=== PATIENT | female | born 1985 | race Caucasian/White ===

== ENCOUNTER 2016-03-29 18:29 | Emergency (ER) | payer OTHER ==
--- NOTE | 2016-03-29 20:22 | DIAGNOSTIC IMAGING REPORT ---
PROCEDURE: CT HEAD WITHOUT CONTRAST INDICATION: TRAUMA/INJURY TECHNIQUE: Noncontrast axial images with sagittal and coronal reformations. COMPARISON: None. FINDINGS: Brain and ventricles are normal. No evidence of an acute process or hemorrhage. Sinuses and mastoids are normal. IMPRESSION: 1. Negative head CT. 2. Findings discussed with BENNIE Solorio at [address] scans at this facility use dose modulation, iterative reconstruction, and/or weight-based dosing when appropriate to reduce radiation dose to as low as reasonably achievable.
--- NOTE | 2016-03-29 20:23 | ED ORDER SUMMARY ---
..... Patient: SANDRO HUDDLESTON OrderSheet [facility] VisitID: [id number] [address] [place] [address] 30y, F Registration Date/Time: 03/29/2016 ORDER SHEET Weight: 90.7 kg (stated) Allergies: None GENERAL ORDERS: CT Head wo Cont Urgent (18:52 03/29/2016 Jackie Mike) [facility] ([facility] RF[facility] MEDICATION ORDERS: IV FLUIDS: ORDER SHEET NOTES: [Electronically signed by Greg Hodgson R.N. (20:36 03/29/2016)] [Electronically signed by Rosa Pineda P.A.-C (20:40 03/29/2016)] [Electronically locked/signed by Greg Hodgson R.N. (20:36 03/29/2016)]
--- NOTE | 2016-03-29 20:23 | ED CLINICAL REPORT ---
Clinical Report - Physicians/Mid Levels [facility] [address] [place] [place] [address] 03/29/2016 18:31 Patient: SANDRO HUDDLESTON Time Seen: 18:49 Mar 29 2016. Arrived- By private vehicle. Historian- patient. HISTORY OF PRESENT ILLNESS Chief Complaint: INJURY TO HEAD. Location of injuries- head. The injury occurred 5 days. Occurred at home. The patient sustained a blow. Fell. The patient complains of mild pain. The patient sustained a blow to the head and was dazed. No neck pain or loss of consciousness. (+ETOH at the time fell forward, unsure of further details. Then slept after, and has had a headache, neck pain since, has had emesis. No prior head injury. Pain persistent worse with movement.). REVIEW OF SYSTEMS No nausea, chest pain, bladder dysfunction or laceration. All systems otherwise negative, except as recorded above. PAST HISTORY Tetanus immunization status is up-to-date. SOCIAL HISTORY Smoker- current status unknown. Alcohol use. ADDITIONAL NOTES The nursing notes have been reviewed. PHYSICAL EXAM Vital Signs: 03/29/2016 18:39 BP: 105/69. HR: 79. RR: 18. O2 saturation: 99%. Temp: 98 F. Appearance: Alert. No acute distress. No backboard or C-collar. Head: Head non-tender. Eyes: Pupils equal, round and reactive to light. No ocular injury. ENT: No dental injury. No hemotympanum. Neck: Vertebral tenderness: (at base of skull). Posterior neck: upper cervical spine, mild tenderness. No foreign body. No ecchymosis. CVS: Heart sounds normal. Pulses normal. Respiratory: Breath sounds normal. Chest nontender. No chest wall injury. Abdomen: No rebound tenderness or guarding. Extremities: Normal inspection. Pelvis stable. Neuro: [place] Coma Scale: 15- eyes open spontaneously (4); best verbal response- oriented x 3 (5); best motor response- obeys commands (6). Oriented X 3. Mood/affect normal. Speech normal. No motor deficit. Normal gait. No sensory deficit. LABS, X-RAYS, AND EKG CT Head: (IMPRESSION: 1. Negative head CT. 2. Findings discussed with Idalia Pineda, BENNIE at [address] scans at this facility use dose modulation, iterative reconstruction, and/or weight-based dosing when appropriate to reduce radiation dose to as low as reasonably achievable. Electronically Final signed by:Jerry Sánchez MD 03/29/2016 8:20:28 PM). PROGRESS AND PROCEDURES Patient/family counseled. Disposition: Discharged. Condition: good. CLINICAL IMPRESSION Minor closed head injury. Concussion. No loss of consciousness. INSTRUCTIONS Prescription Medications: Zofran (orally disintegrating tablets) 4 mg: take 1 orally every 6 hours for 3 days. No refill. Substitution is permissible. OTC Medications: Take OTC medications according to label instructions. Available over the counter. Acetaminophen (available over the counter): take according to label instructions. Motrin (available over the counter): take according to label instructions. Follow-up: Follow up with your doctor in three days. Understanding of the discharge instructions verbalized by patient. (Electronically signed by Rosa Pineda P.A.-C 03/29/2016 20:40)
--- NOTE | 2016-03-29 20:23 | ED ORDER SUMMARY ---
..... Patient: SANDRO HUDDLESTON OrderSheet [facility] VisitID: [id number] [address] [place] [address] 30y, F Registration Date/Time: 03/29/2016 ORDER SHEET Weight: 90.7 kg (stated) Allergies: None GENERAL ORDERS: CT Head wo Cont Urgent (18:52 03/29/2016 Jackie Mike[facility] ([facility] RFay[facility] MEDICATION ORDERS: IV FLUIDS: ORDER SHEET NOTES: [Electronically signed by Greg Hodgson R.N. (20:36 03/29/2016)] [Electronically signed by Rosa Pineda P.A.-C (20:40 03/29/2016)] [Electronically locked/signed by Greg Hodgson R.N. (20:36 03/29/2016)]
--- NOTE | 2016-03-29 20:23 | ED NURSING NOTES ---
Clinical Report - Nurses [facility] [address] [place] [address] 03/29/2016 18:31 Patient: JAZLYN HUDDLESTON TRIAGE Triage time 18:39 Mar 29 2016. Acuity: LEVEL 3. Chief Complaint: HEADACHE. --18:55 Nigel Godinez R.N. 18:39 03/29/16. BP: 105/69. HR: 79. RR: 18. O2 saturation: 99%. Temp: 98 F. Pain level now 06/15. --18:55 Nigel Godinez R.N. Weight: 90.7 kg stated. Height/Length: 65 inches Per Patient. BMI: 33.3. --18:54 Nigel Godinez R.N. Medications Vitamins/Minerals Oral. --18:45 Nigel Godinez R.N. Allergies None. --19:05 Nigel Godinez R.N. History Arrived by private vehicle. Historian: patient. This started 5 days ago. ( Patient fell and landed on head 5 days ago. Lump has gone down but has had a severe headache since then with neck pain. States did throw up a couple of days but thinks it may have been a stomach bug. Wants to make sure she doesn't have a bleed or anything wrong since pain won't go away. Patient is very light sensitive and has been taking bayers asa in the PM and excedrine during the day.). She has had nausea and vomiting. ( Not currently yesterday was throwing up though.). No weakness, numbness, fever or sinus pain. PAST MEDICAL HX: No history of diabetes mellitus or hypertension. No history of headaches or head injury. Last normal menstrual period- Mar 08. SOCIAL HX: Current every day heavy tobacco smoker- 1-2 packs per day. Regular alcohol use. No drug use. She has had contact with a sick friend. No infectious disease exposure. SELF HARM ASSESSMENT: A self harm assessment was performed. The patient answered "no" to the question "Have you recently felt down, depressed, or hopeless?" and "Do you have thoughts of harming or killing yourself?". FALL RISK ASSESSMENT: Fall risk assessment completed. No fall risk identified. NUTRITIONAL RISK ASSESSMENT: The nutritional risk assessment revealed no deficiencies. FUNCTIONAL ASSESSMENT: Functional assessment: no impairments noted. LEARNING NEEDS ASSESSMENT: The learning needs assessment revealed no barriers. ABUSE ASSESSMENT: Abuse assessment: (no) The patient was asked "Do you feel safe in your home?". SKIN INTEGRITY ASSESSMENT: Skin integrity risk assessment completed. No skin integrity risk identified. --18:55 Nigel Godinez R.N. PROBLEMS: Otitis Media. Otitis Externa. Impacted Cerumen. Ear Infection. Immunizations. --18:46 Nigel Godinez R.N. ADDITIONAL SURGERIES: no known surgeries. Interventions ID band on patient. --18:55 Nigel Godinez R.N. PHYSICAL ASSESSMENT Ambulatory to room. GENERAL / NEURO / PSYCH: Alert. Oriented X 4. Appears in pain. Speech within normal limits. HEENT: No facial asymmetry noted. Pupils equal, round and reactive to light. RESPIRATORY: Respirations not labored. Breath sounds within normal limits. CVS: Capillary refill less than 2 seconds. GI / : Abdomen soft and nontender. SKIN: Skin is warm and dry. --18:58 Nigel Godinez R.N. NURSING PROGRESS NOTES Pulse oximeter and NIBP monitor placed on patient. Head of bed elevated (45). Reassurance given. Call light placed in reach. Side rails up x 1. Bed placed in lowest position. Brakes of bed on. ( POC for is negative). --19:03 Nigel Godinez R.N. The initial plan of care for this patient has been created This plan of care was discussed with the patient. Reassurance given to the patient. Lights dimmed. The patient is calm and sleeping. GENERAL / NEURO / PSYCH: Alert. Oriented X 4. [place] Coma Scale: 15- eyes open spontaneously (4); best verbal response- oriented x 4 (5); best motor response- obeys commands (6). RESPIRATORY: No respiratory distress. No respiratory distress. Respirations not labored. SKIN: Skin is warm and dry. Skin color within normal limits. Two patient identifiers checked. Call light placed in reach. Side rails up x 2. Bed placed in lowest position. Brakes of bed on. Care transferred and report received (LAMONTE Manning (at 1900)). --19:43 Greg Hodgson R.N. 19:41 03/29/16. BP: 90/58 (regular adult cuff) taken on the left arm, via an automated monitor, while lying. HR: 72 (normal rate). RR: 14 (regular, unlabored and normal). O2 saturation: 97% on room air. Pain level now: 0/10. --19:43 Greg Hodgson R.N. DISPOSITION / DISCHARGE Departure time: 20:36. Condition at departure: stable. The goals identified in the patient's plan of care were met. No learning barriers present. Discharge instructions provided and reviewed with the patient. Reviewed medication(s) side effects, precautions, dosing and course information. Prescription(s) given to the patient (Jazlyn verbalizes safe, proper use of all prescribed meds for optimal pain management at home.). Activity restrictions (rest) reviewed. Patient verbalized understanding. Written instructions provided in Khmer. ( Masoudcherellenirmala verbalizes understanding of all d/c instructions including need to not re-injure head in the 2 weeks and f/u with her PCP. She has no questions and voices no concerns at this time.). The patient was discharged by the physician bilingual executive assistant. She was discharged home and accompanied by spouse. She left the Emergency Department ambulatory and via private vehicle. Spouse driving. [place] COMA SCORE: [place] Coma Scale: 15- eyes open spontaneously (4); best verbal response- oriented x 4 (5); best motor response- obeys commands (6). --20:36 Greg Hodgson R.N. 20:28 03/29/16. BP: 93/51 (regular adult cuff) taken on the left arm, via an automated monitor, while lying. HR: 74 (normal rate). RR: 16 (regular, unlabored and normal). O2 saturation: 97% on room air. Temp: 98.2 F (oral). Pain level now: 0/10. --20:36 Greg Hodgson R.N. Locked/Released at 03/29/2016 20:36 by Greg Hodgson R.N.
--- NOTE | 2016-03-29 20:40 | ED MAR SUMMARY ---
..... Medication Administration Record [facility] [address] [place], [place] [id number] Patient: SANDRO HUDDLESTON Layo Visit ID: [id number] 30y, F Weight: 90.7 kg Height/Length: 65 in BMI: 33.3 ALLERGIES: None
--- NOTE | 2016-03-29 20:40 | ED DISCHARGE INSTRUCTIONS ---
Patient: SANDRO HUDDLESTON General Instructions [facility] VisitID: [id number] [place] [address] 30y, F Registration Date/Time: 03/29/2016 Minor closed head injury. Concussion. No loss of consciousness. INSTRUCTIONS Prescription Medications: Zofran (orally disintegrating tablets) 4 mg: take 1 orally every 6 hours for 3 days. No refill. Substitution is permissible. OTC Medications: Take OTC medications according to label instructions. Available over the counter. Acetaminophen (available over the counter): take according to label instructions. Motrin (available over the counter): take according to label instructions. Follow-up: Follow up with your doctor in three days. Understanding of the discharge instructions verbalized by patient. ADDITIONAL INFORMATION Head Injury, No Wake-Up (Adult) You have had a head injury. It does not appear serious at this time. Symptoms of a more serious problem (concussion, bruising, or bleeding in the brain) may appear later. Therefore, watch for the WARNING SIGNS listed below. Home Care: Your healthcare provider will tell you whether its okay to drive. If so, you can drive yourself home. For the next day or so, be careful when driving or using heavy machinery until you are sure you have no delayed symptoms. During the next 24 hours someone must stay with you to check for the signs below. It is not necessary to stay awake or be awakened during the night. If you have swelling of the face or scalp, apply an ice pack (ice cubes in a plastic bag, wrapped in a towel) for 20 minutes. Do this every 1-2 hours until the swelling starts to go down. Do not use aspirin or ibuprofen (Motrin, Advil) after a head injury.You may use acetaminophen (Tylenol)to control pain, unless another pain medicine was prescribed. [NOTE: If you have chronic liver or kidney disease or ever had a stomach ulcer or GI bleeding, talk with your doctor before using these medicines.] For the next 24 hours: Do not take alcohol, sedatives or medicines that make you sleepy. Avoid strenuous activities. No lifting or straining. If you have had any symptoms of a concussion today (nausea, vomiting, dizziness, confusion, headache, memory loss or if you were knocked out), do not return to sports or any activity that could result in another head injury until all symptoms are gone and you have been cleared by your doctor. A second head injury before fully recovering from the first one can lead to serious brain injury. Follow Up with your doctor if symptoms are not improving after 24 hours, or as directed. [NOTE: A radiologist will review any X-rays or CT scans that were taken. We will notify you of any new findings that may affect your care.] Get Prompt Medical Attention if any of the followingWARNING SIGNS occur: Repeated vomiting Severe or worsening headache or dizziness Unusual drowsiness, or unable to awaken as usual Confusion or change in behavior or speech, memory loss, blurred vision Convulsion (seizure) Increasing scalp or face swelling Redness, warmth or pus from the swollen area Fluid drainage or bleeding from the nose or ears Concussion (No Wake-Up) A concussion happens when you hit your head with enough force to shake up the brain. This may cause you to lose consciousness be "knocked out" - but not always. Depending on how hard you hit your head, it will take from a few hours up to a few days to get better. Sometimes symptoms may last a few months or longer. This is called post-concussion syndrome. At first, you may have a headache, nausea, vomiting, or dizziness. You may also have problems concentrating or remembering things. This is normal. Symptoms should get better as the hours and days go by. Symptoms that get worse could be a sign of a more serious injury. This might be a bruise or bleeding in the brain. Thats why its important to watch for the warning signs listed below. Home care Follow these tips to help care for yourself at home: During the next day (24 hours) someone must stay with you to check for the signs below. If your face or scalp swells, apply an ice pack for 20 minutes every 1 to 2 hours. Do this until the swelling starts to go down. You can make an ice pack by putting ice cubes in a plastic bag and wrapping the bag in a towel. for 20 minutes every 1-2 hours until the swelling starts to go down. You may use acetaminophen to control pain, unless another pain medicine was prescribed. If you have chronic liver or kidney disease, talk with your doctor before using these medicines. Also talk with your doctor if you ever had a stomach ulcer or GI bleeding. For the next 24 hours: Dont drink alcohol or take sedatives or medicines that make you sleepy. Dont drive or operate machinery. Avoid doing anything strenuous. Dont lift or strain. Dont return to sports or any activity that could cause you to hit your head until all symptoms are gone and you have been cleared by your doctor. A second head injury before fully recovering from the first one can lead to serious brain injury. Follow-up care Follow up with your doctor in 1 week, or as directed. Note: A radiologist will review any X-rays or CT scans that were taken. You will be told of any new findings that may affect your care. When to seek medical care Get prompt medical attention if any of these occur: Repeated vomiting Headache or dizziness that is severe or gets worse Unusual drowsiness, or unable to wake up as usual Confusion or change in behavior or speech, or memory loss Blurred vision Convulsion (seizure) Swelling on the scalp or face that gets worse Redness, warmth, or pus from the swollen area Fluid draining from or bleeding from the nose or ears Ondansetron Oral disintegrating tablet What is this medicine? ONDANSETRON (on JULITO se chago) is used to treat nausea and vomiting caused by chemotherapy. It is also used to prevent or treat nausea and vomiting after surgery. How should I use this medicine? These tablets are made to dissolve in the mouth. Do not try to push the tablet through the foil backing. With dry hands, peel away the foil backing and gently remove the tablet. Place the tablet in the mouth and allow it to dissolve, then swallow. While you may take these tablets with water, it is not necessary to do so. Talk to your incinerator operator regarding the use of this medicine in children. Special care may be needed. What side effects may I notice from receiving this medicine? Side effects that you should report to your doctor or health care information associate as soon as possible: allergic reactions like skin rash, itching or hives, swelling of the face, lips, or tongue breathing problems dizziness fast or irregular heartbeat feeling faint or lightheaded, falls fever and chills swelling of the hands and feet tightness in the chest Side effects that usually do not require medical attention (report to your doctor or health care information associate if they continue or are bothersome): constipation or diarrhea headache What may interact with this medicine? Do not take this medicine with any of the following medications: -apomorphine -cisapride -dofetilide -dronedarone -pimozide -thioridazine -ziprasidone This medicine may also interact with the following medications: -carbamazepine -phenytoin -rifampicin -tramadol -other medicines that prolong the QT interval (cause an abnormal heart rhythm) What if I miss a dose? If you miss a dose, take it as soon as you can. If it is almost time for your next dose, take only that dose. Do not take double or extra doses. Where should I keep my medicine? Keep out of the reach of children. Store between 2 and 30 degrees C (36 and 86 degrees F). Throw away any unused medicine after the expiration date. What should I tell my health care provider before I take this medicine? They need to know if you have any of these conditions: heart disease history of irregular heartbeat liver disease low levels of magnesium or potassium in the blood an unusual or allergic reaction to ondansetron, granisetron, other medicines, foods, dyes, or preservatives or trying to get breast-feeding What should I watch for while using this medicine? Check with your doctor or health care information associate as soon as you can if you have any sign of an allergic reaction. You have been given the following additional information: HEAD INJURY, No Wake-Up (Adult) Concussion, No Wake-Up Ondansetron Oral disintegrating tablet (Electronically signed by Rosa Pineda P.A.-C 03/29/2016 20:40)
--- NOTE | 2016-03-29 20:40 | ED MED RECONCILIATION SUMMARY ---
Patient: SANDRO HUDDLESTON Medication Reconciliation Report [facility] VisitID: [id number] [place] [address] 30y, F Registration Date/Time: 03/29/2016 Weight: 90.7 kg Height/Length: 65 in. BMI: 33.3 ALLERGIES: None The patient's Home Medications are listed below: THE FOLLOWING MEDICATIONS NEED TO BE RECONCILED: Vitamins/Minerals Oral The source(s) of the original Home Medication information: Not obtained. The following Medications were given to the patient in the Emergency Department: None. The following Medications were prescribed to the patient: Take OTC medications according to label instructions. Available over the counter. -- Rosa Pineda, P.A.-C Acetaminophen (available over the counter): take according to label instructions. -- Rosa Pineda, P.A.-C Motrin (available over the counter): take according to label instructions. -- Rosa Pineda P.A.-C Zofran (orally disintegrating tablets) 4 mg: take 1 orally every 6 hours for 3 days. No refill. Substitution is permissible. -- Rosa Pineda, P.A.-C
--- NOTE | 2016-03-29 20:40 | ED MED RECONCILIATION SUMMARY ---
Patient: SANDRO HUDDLESTON Medication Reconciliation Report [facility] VisitID: [id number] [place] [address] 30y, F Registration Date/Time: 03/29/2016 Weight: 90.7 kg Height/Length: 65 in. BMI: 33.3 ALLERGIES: None The patient's Home Medications are listed below: THE FOLLOWING MEDICATIONS NEED TO BE RECONCILED: Vitamins/Minerals Oral The source(s) of the original Home Medication information: Not obtained. The following Medications were given to the patient in the Emergency Department: None. The following Medications were prescribed to the patient: Take OTC medications according to label instructions. Available over the counter. -- Rosa Pineda, P.A.-C Acetaminophen (available over the counter): take according to label instructions. -- Rosa Pineda, P.A.-C Motrin (available over the counter): take according to label instructions. -- Rosa Pineda P.A.-C Zofran (orally disintegrating tablets) 4 mg: take 1 orally every 6 hours for 3 days. No refill. Substitution is permissible. -- Rosa Pineda, P.A.-C
--- NOTE | 2016-03-29 20:40 | ED MAR SUMMARY ---
..... Medication Administration Record [facility] [address] [place], [place] [id number] Patient: SANDRO HUDDLESTON Layo Visit ID: [id number] 30y, F Weight: 90.7 kg Height/Length: 65 in BMI: 33.3 ALLERGIES: None
== END 2016-03-29 20:35 | disposition home or self-care (01) ==
LOC: ED SRH 18:29
DX: S06.0X0A Concussion without loss of consciousness, initial encounter (principal); R11.10 Vomiting, unspecified; W19.XXXA Unspecified fall, initial encounter; Y93.9 Activity, unspecified; Y92.009 Unspecified place in unspecified non-institutional (private) residence as the place of occurrence of the external cause; Y99.9 Unspecified external cause status